=== PATIENT | male | born 1980 | race Caucasian/White ===

== ENCOUNTER 2022-02-19 08:33 | Outpatient (CLI) | payer OTHER ==
[2022-02-19 09:20] VITALS: BP 124/76
--- NOTE | 2022-02-19 09:20 | SLEEP CARE CONSULTATION ---
Information from patient questionnaire entered by Gerardo Griffin MA. I have reviewed and concur with the information entered by Gerardo Griffin MA. This document represents the service I personally performed and the decisions made by , Emilia Horan ARNP. History of Present Illness Service Date and Time: 02/19/2022 0833 Reason for Visit: New patient (ONSET DATE 09/21/2018, ) Chief Complaint: reports: Snoring, Observed pauses in breathing, Fatigue Date of Onset: several years Usual bedtime: varies due to rotating schedule; 11 PM to midnight Time it takes to fall asleep: either less than 5 minutes or an hour Snores at night: Yes Observed to quit breathing while asleep: Yes Sleeps alone due to snoring: Yes Number of times waking at night: 1-2 times Reasons for waking at night: reports: Snoring, Bathroom, Other (unknown reasons). denies: Choking, Gasping for air Toss, Turn, or Twitch while sleeping: No (not sure) Recalls having dreams: No Usually gets out of bed at: 6-7 AM Feels refreshed in the morning: Yes (depends - usually if able to get at least 6 hours) Morning headache: No Sleepy or fatigued during the day: Yes Ever fallen asleep while driving: Yes (drowsy driving, dozing at redlight after overnight shift) Takes day naps: Yes (only when working nights) Dreams during day naps: No Prior sleep studies: No Additional HPI information: I had the pleasure of seeing JENNIFER MATTSON today regarding the possibility of him having a sleep disorder. His current complaints are fatigue, snoring and observed pauses in breathing. He states he normally feels rested if he is able to sleep six hours. He had been on a rotating shift schedule at work but as of 2 weeks ago it has changed to a regular day shift. - Parasomnia Symptoms Ever been unable to move upon waking from sleep: No Walks in sleep: No Talks in sleep: Yes Ever acted out dreams in sleep: No Ever felt weak in the knees when startled or emotional: No Bothered by creepy, crawly, restless sensations in legs: No Problems with memory or concentration: Yes (more memory issues, short term) Subjective Initial [place] Sleepiness Scale score: 12 (02/2022) Past Medical History Past Medical History: reports: Dysphagia, GERD Social History The patient's occupation is a [employer]. Patient is and lives in . Have you smoked in the past 12 months: No Alcohol use: Yes Alcohol amount and frequency: 1-2 per week Caffeine use: Yes Caffeine amount and frequency: 2-3 daily Family History Family history of sleep disordered breathing: Yes Family Hx Sleep Apnea: Grandparent: Snoring Allergies and Home Medications Drug allergies reviewed: Yes (NKDA) Home medication list reviewed: Yes Allergy and home medication list: Medications: Terbinafine, temp for 84 days Omeprazole Famotidine Review of Systems Weight gain over past 5 years: 10-15 lbs Cardiovascular: denies: high blood pressure Gastrointestinal: reports: heartburn, difficulty swallowing Urinary: reports: other (wake up to pee every night) Ear/Nose/Throat: reports: wisdom teeth removed. denies: tonsillectomy Immunologic: reports: allergies to food or environment (seasonal) Physical Exam Vital signs obtained and entered by: Ankit Arellano MA Blood Pressure: 124/76 Cuff size: regular Heart Rate: 79 O2 Saturation: 97 Height: 5 ft 9 in Weight: 230 lb Body Mass Index: 34.0 BMI Classification: Obese Neck circumference: 17.75 (inches) Mouth and throat: narrow oropharynx Soft palate: long Hard palate: arched Uvula: normal Uvula visualization: 25% Mallampati Class III Tongue: enlarged in size with teeth hoff on lateral edges Tonsils: small Neck: normal w/o lymphadenopathy or thyromegaly Heart: regular rate and rhythm Lungs: clear bilaterally Impression and Plan 1. Suspected Obstructive Sleep Apnea-Hypopnea Syndrome, as suggested by a history of loud and irregular snoring, observed cessation of breath while asleep, cognitive impairment, and excessive daytime sleepiness. Narrow oropharynx and obesity are common predisposing factors for obstructive sleep apnea-hypopnea syndrome. I recommend proceeding to polysomnography to confirm the diagnosis and to assess severity. If the patient has significant sleep disordered breathing, a manual CPAP titration study will also be performed to find the optimal treatment pressure. I informed the patient of what the sleep studies involve and after some discussion, obtained agreement to proceed. The pathophysiology of obstructive sleep apnea-hypopnea syndrome was discussed with the patient and health risks of cardiovascular and cerebrovascular disease if not treated. 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 Patient agreed to plan. * Schedule polysomnography * Avoid long distance driving or driving when feeling sleepy. * Avoid alcohol, sedative and muscle relaxant around bedtime. * Attempt to lose weight. * Review instructions provided by trained office staff on how to prepare for the sleep study. * Return for follow-up after sleep study completed. Counseling Topics: Weight loss health impact Visit Type: In Office Time Spent with Patient (minutes): 32 Provider Statement: I spent 100% of the Face to Face Visit with the patient with greater than 50% spent counseling the patient and coordination of care.
== END 2022-02-19 08:34 | disposition home or self-care (01) ==
LOC: SC 08:33
PROVIDERS: ATTEND Nurse Practitioner Family
DX: R06.83 Snoring (principal); R06.81 Apnea, not elsewhere classified; G47.10 Hypersomnia, unspecified; R53.83 Other fatigue; Z68.34 Body mass index [BMI] 34.0-34.9, adult; E66.9 Obesity, unspecified
CPT/HCPCS: 99203; 99212

== ENCOUNTER 2022-03-03 20:35 | Outpatient (CLI) | payer OTHER | END 2022-03-03 20:36 | disposition home or self-care (01) | LOC: SC 20:35 | PROVIDERS: ATTEND Nurse Practitioner Family | DX: G47.33 Obstructive sleep apnea (adult) (pediatric) (principal) | CPT/HCPCS: 95810 ==

== ENCOUNTER 2022-03-25 15:11 | Outpatient (CLI) | payer OTHER ==
[2022-03-25 15:45] VITALS: BP 120/72
--- NOTE | 2022-03-25 15:45 | SLEEP CARE CONSULTATION ---
Information from patient questionnaire entered by Gerardo Griffin MA. I have reviewed and concur with the information entered by Gerardo Griffin MA. This document represents the service I personally performed and the decisions made by , Emilia Horan ARNP. History of Present Illness Service Date and Time: 03/25/2022 1511 Initial [place] Sleepiness Scale score: 12 (02/2022) Current [place] Sleepiness Scale score: 8 (03/25/2022) Additional HPI information: JENNIFER MATTSON returns for follow up and results of the recently performed polysomnography. I explained the pathophysiology behind obstructive sleep apnea. We then spent quite a bit of time discussing different treatment options. For mild obstructive sleep apnea, surgery and oral appliance are alternatives to nasal CPAP therapy but in moderate or severe cases, nasal CPAP is the most effective and reliable treatment. Because apnea is primarily in supine position, then positional management therapy could be effective. Methods discussed such as positioning with pillows, using a T-shirt with tennis balls in the back, and shown commercial products that have a pillow format on back to prevent supine sleep. I reviewed the impact of weight changes on sleep apnea and strongly recommended losing weight. After some discussion, the patient opted to go with the nasal CPAP therapy. Nasal autoCPAP set at 4-15 cmH20 will be ordered with rationale explained. A manual titration study will be ordered if unable to find optimal pressure with office adjustments. I explained how CPAP machine works and what to expect when using the machine. Using CPAP every night in order to get used to it was emphasized. Patient advised to put CPAP mask on before getting into bed so as not to fall asleep without CPAP. To assist acclimation to CPAP use, it could also be used for a short time during day while reading or watching TV. The patient was instructed to call the CPAP supplier to discuss any mechanical problem that may occur. If the mask given is uncomfortable or is difficult to keep on through the night even with adjustment, contact the CPAP supplier as many will replace with another mask style if notified before 30 days. If snoring or perceives is not getting enough air or too much air from the machine, notify this office. Patient counseled not drink alcohol less than 4 hours before bedtime as it can increase snoring and apnea. Patient was cautioned about risks of drowsy driving until sleepiness symptoms resolve. Sleep Study - Results Type of Sleep Study: Polysomnography (F/U POLY, 03/03/2022 [facility], POS,) Prior sleep studies: No Polysomnography/Home Sleep Study results: IMPRESSION: The quality of the study is good. The patient had normal sleep efficiency. The sleep architecture was abnormal for sleep fragmentation and reduced amount of time spent in REM and slow wave sleep (N3). Respiratory monitoring showed moderate obstructive sleep apnea-hypopnea (AHI = 21.1) associated with frequent arousals, oxyhemoglobin desaturation and moderate hypoxia (alvarez oxygen saturation of 78%). Baseline oxygen saturation was normal. The respiratory events occurred almost exclusively during supine sleep (supine AHI = 60.0; non-supine = 1.71). Snore was loud in intensity. There was no significant periodic leg movement of sleep. Cardiac rhythm was normal sinus rhythm without significant arrhythmia. No abnormal behavior (parasomnia) observed during the night. Allergies and Home Medications Home medication list reviewed: Yes (no changes) Review of Systems Review of systems same as previous: Yes (changes) Physical Exam Vital signs obtained and entered by: YARELY TOLEDO Blood Pressure: 120/72 (PULSE 73, RESP 18, RIGHT, ) Heart Rate: 77 O2 Saturation: 98 (PAPER MASK) Height: 5 ft 9 in Weight: 225 lb Body Mass Index: 33.2 BMI Classification: Obese Impression and Plan 1. Obstructive Sleep Apnea-Hypopnea Syndrome, moderate, with lowest oxygen saturation of 78%. Obviously this is the cause of the patients symptoms of unrefreshed sleep, and excessive daytime sleepiness. Positive pressure therapy could benefit gastric reflux. As mentioned above, the patient will be started on nasal autoCPAP therapy with pressure set at 4-15 cmH2O. Compliance guidelines also reviewed. A copy of compliance guidelines will be given for reference at check out. Because the apnea is more severe supine, I instructed to avoid sleeping supine using pillow positioning until able to start CPAP use. 2. Hypoxemia, moderate, a alvarez oxygen saturation of 78% and about 12.1 minutes spent under 89%. His baseline oxygen saturation was normal with an average oxygen saturation of 95%. * Nasal auto CPAP therapy, pressure at 4-15 cm H2O. * Attempt to lose weight. * Avoid alcohol consumption near bedtime. * Avoid supine sleep until using CPAP. * The patient is again cautioned about driving until sleepiness completely resolves. * Return one month after CPAP obtained. I will assess response to therapy and compliance at that time. Counseling Topics: Weight loss health impact Visit Type: In Office Time Spent with Patient (minutes): 21 Provider Statement: I spent 100% of the Face to Face Visit with the patient with greater than 50% spent counseling the patient and coordination of care.
== END 2022-03-25 15:12 | disposition home or self-care (01) ==
LOC: SC 15:11
PROVIDERS: ATTEND Nurse Practitioner Family
DX: G47.33 Obstructive sleep apnea (adult) (pediatric) (principal); R09.02 Hypoxemia; E66.9 Obesity, unspecified; Z68.33 Body mass index [BMI] 33.0-33.9, adult
CPT/HCPCS: 99212; 99213

== ENCOUNTER 2022-06-18 11:28 | Outpatient (CLI) | payer OTHER ==
[2022-06-18 12:14] VITALS: BP 144/74
--- NOTE | 2022-06-18 12:14 | SLEEP CARE CONSULTATION ---
Information from patient questionnaire entered by Christa Arellano. I have reviewed and concur with the information entered by Christa Arellano. This document represents the service I personally performed and the decisions made by , Emilia Horan ARNP. History of Present Illness Service Date and Time: 06/18/2022 1128 Previous diagnosis: Moderate, Obstructive Sleep Apnea-Hypopnea Syndrome AHI: 21.1 (in 2021) Reason for follow up: first compliance (SET UP 05/14/22, RESMED ) Equipment type: CPAP (ResMed) Equipment obtained from: Other ([facility]; getting supplies) Mask style: Nasal (over the nose) Backup mask available: No (will keep old mask when replaced) Last cushion change: last week Prior sleep studies: No Type of Sleep Study: Polysomnography (F/U POLY, 03/03/2022 [facility], POS,) HPI additional information: JENNIFER MATTSON was diagnosed to have moderate, AHI 21.1, obstructive sleep apnea- hypopnea syndrome and returned today for CPAP therapy first compliance follow- up. Sleep Study - Results Type of Sleep Study: Polysomnography (F/U POLY, 03/03/2022 [facility], POS,) Prior sleep studies: No CPAP Compliance Data - Data Reviewed with Patient Average duration of nightly device use: 5 HOURS, 1 MINUTE Compliance rate %: 68 (05/18/22 TO 06/17/22; days used) Current pressure setting (cmH2O): 4-15 (median 8.3, avg 10.1, max 10.9) Average residual AHI: 4.1 Average large leak: 6.2 L/mask Subjective Missed days of use due to: reports: travel Patient concerns: reports: condensation in mask/hose. denies: aerophagia, mask discomfort, air blowing in eyes, mask leak noise, nasal congestion, dry mouth, nose, throat, epistaxis Observed to snore while using device: No Current pressure setting perceived as: comfortable On therapy, patient: reports: sleeping better, awakening more refreshed, being more awake and alert during the day, more rested overall. denies: drowsiness while driving Initial [place] Sleepiness Scale score: 12 (02/2022) Current [place] Sleepiness Scale score: 3 (06/18/22) Allergies and Home Medications Drug allergies reviewed: Yes (NKDA) Home medication list reviewed: Yes (no changes) Review of Systems Review of systems same as previous: Yes (no changes) Physical Exam Vital signs obtained and entered by: EVITA Couch Blood Pressure: 144/74 (LEFT ARM ) Cuff size: regular Heart Rate: 66 O2 Saturation: 96 Height: 5 ft 9 in Weight: 231 lb Body Mass Index: 34.1 BMI Classification: Obese Impression and Plan 1. Obstructive Sleep Apnea-Hypopnea Syndrome, moderate, with good treatment compliance and good apnea control. On CPAP therapy, the patient has better sleep quality and is more rested overall. Patient has significant improvement of his sleep apnea and is getting comfortable with CPAP therapy. The patients pressure will be changed to autoCPAP 9-11 cmH20 to reflect pressures being used. His ramp is off. I will turn this on for patient comfort with a starting ramp pressure of 4 and 15 minutes of ramp time. Patient advised to contact me if pressure change is uncomfortable so that it can be adjusted. Goals for apnea control discussed. Patient's apnea severity and rationale for treatment to reduce apnea, improve sleep quality and reduce cardiovascular and cerebrovascular events was reviewed. I also reviewed the benefit of consistent device use of CPAP for gastric reflux. * Change auto CPAP pressure to 9-11 cmH2O * Notify me if snoring with mask or feeling that the pressure is too much or too little * Attempt to lose weight * Call this office if any problems using CPAP * Return for follow up in 1-2 months, or sooner if concerns arise Counseling Topics: Spare mask, Weight loss health impact Visit Type: In Office Time Spent with Patient (minutes): 22 Provider Statement: I spent 100% of the Face to Face Visit with the patient with greater than 50% spent counseling the patient and coordination of care.
== END 2022-06-18 11:29 | disposition home or self-care (01) ==
LOC: SC 11:28
PROVIDERS: ATTEND Nurse Practitioner Family
DX: G47.33 Obstructive sleep apnea (adult) (pediatric) (principal); E66.9 Obesity, unspecified; Z68.34 Body mass index [BMI] 34.0-34.9, adult
CPT/HCPCS: 99212; 99213

== ENCOUNTER 2023-07-09 11:24 | Day surgery (SDC) | payer OTHER ==
[~2023-07-09 11:24] MED LIST: ceFAZolin 2 GM VIAL ONE; metroNIDAZOLE 500 MG/100 ML 500 MG/100 ML BAG ONE
[2023-07-09] MEDS ORDERED: LACTATED RINGERS 1,000 ML IV ONE (11:28)
[2023-07-09] MEDS ORDERED: ROCURONIUM 50 MG/5 ML VIAL ONE (12:04)
[2023-07-09] MEDS ORDERED: PROPOFOL 500 MG/50 ML 500 MG/50 ML VIAL ONE (12:04)
[2023-07-09] MEDS ORDERED: BUPIVACAINE 0.25% PF 30 ML VIAL ONE ×2 (12:25→13:10)
--- NOTE | 2023-07-09 12:25 | HISTORY & PHYSICAL EXAMINATION ---
Chief Complaint - Chief Complaint Chief Complaint: here for pilonidal cyst surgery History of Present Illness - History Obtained From Records Reviewed: yes History obtained from: pt Exam Limitations: none - History of Present Illness HPI Comment/Other: pilonidal cyst problem for many months. waxing and waning inflammation and pain History - Past Medical History Cardiovascular: reports: None Respiratory: reports: Sleep apnea, CPAP use Endocrine/Autoimmune: reports: None GI: reports: GERD, Ulcers : reports: None HEENT: reports: Chronic hearing loss, Other Psych: reports: None Musculoskeletal: reports: Chronic back pain Derm: reports: None MRSA Hx?: No - Past Surgical History General: reports: EGD Meds/Allgy - Home Medications Home Medications: Ambulatory Orders Medication Instructions Recorded Confirmed Famotidine [Pepcid] 20 mg PO DAILY PRN 07/06/23 07/08/23 - Allergies Allergies/Adverse Reactions: Allergies Allergy/AdvReac Type Severity Reaction Status Date / Time No Known Drug Allergies Allergy Verified 07/09/23 11:45 Review of Systems - Other Findings Other Findings: 10 pt ros as above otherwise unremarkable Exam - Vital Signs Vital Signs: Vital Signs x48h Temp Pulse Resp BP Pulse Ox 07/09/23 11:37 36.2 C L 65 10 L 128/88 H 97 - Physical Exam General Appearance: positive: No acute distress, Alert Eyes Bilateral: positive: PERRL, EOMI ENT: positive: No signs of dehydration Neck: positive: No JVD, Trachea midline Respiratory: positive: No respiratory distress, Breath sounds nml Cardiovascular: positive: Regular rate & rhythm Abdomen: positive: No distention Skin: positive: Other (pilonidal cyst present) Neurologic/Psychiatric: positive: Oriented x3 Conclusion/Plan - Problem List (1) Pilonidal cyst Conclusion/Plan: plan excision. parq held and consent obtained
[2023-07-09] MEDS ORDERED: fentaNYL 100 MCG/2 ML VIAL IVP PRN (12:28)
[2023-07-09] MEDS ORDERED: ePHEDrine 50 MG/ML VIAL IVP PRN (12:28)
[2023-07-09] MEDS ORDERED: NALOXONE 0.4 MG/ML VIAL IVP PRN (12:28)
[2023-07-09] MEDS ORDERED: ATROPINE ABBOJECT 1 MG/10 ML SYRINGE IVP PRN (12:28)
[2023-07-09] MEDS ORDERED: ONDANSETRON 4 MG/2 ML VIAL IVP PRN (12:28)
[2023-07-09] MEDS ORDERED: HYDROmorphone 0.5 MG/0.5 ML SYRINGE IVP PRN (12:28)
--- NOTE | 2023-07-09 12:28 | ANESTHESIA ---
Pre-Anesthesia VS, & Labs - Diagnosis pilonidal cyst - Procedure pilonidal cystectomy Vital Signs: Temp Pulse Resp BP Pulse Ox O2 Flow Rate 36.2 C L 65 10 L 128/88 H 97 07/09/23 11:37 07/09/23 11:37 07/09/23 11:37 07/09/23 11:37 07/09/23 11:37 Height: 5 ft 9 in Weight (kg): 104.7 kg Body Mass Index: 34.0 BMI Classification: Obese - NPO >8 hours - Lab Results Lab results reviewed: Yes Home Medications and Allergies Home Medications: Ambulatory Orders Famotidine [Pepcid] 20 mg PO DAILY PRN 07/06/23 Famotidine [Pepcid] 20 mg PO DAILY PRN 07/06/23 Allergies/Adverse Reactions: Allergies Allergy/AdvReac Type Severity Reaction Status Date / Time No Known Drug Allergies Allergy Verified 07/09/23 11:45 Anes History & Medical History - Anesthetic History Anesthesia Complications: reports: No previous complications Family history of Anesthesia Complications: Denies Family history of Malignant Hyperthermia: Denies - Medical History Cardiovascular: reports: None Pulmonary: reports: Sleep apnea, CPAP use Gastrointestinal: reports: GERD (w/c), Ulcers Urinary: reports: None Neuro: reports: None Musculoskeletal: reports: Chronic back pain Endocrine/Autoimmune: reports: None Skin: reports: None Smoking Status: Never smoker Psychosocial: reports: No issues indicated - Surgical History General: reports: EGD Exam General: Alert, Oriented x3, Cooperative Dental: WNL Mouth Openin Fingerbreadth Neck Mobility: Normal Mallampati classification: II Thyromental Distance: 4-6 cm Respiratory: Lungs clear Cardiovascular: Regular rate Plan Anesthesia Type: General Consent for Procedure(s) Verified and Reviewed: Yes Code Status: Attempt Resuscitation ASA classification: 2-Mild systemic disease Is this case an emergency?: No
[2023-07-09] MEDS ORDERED: fentaNYL 100 MCG/2 ML VIAL ONE (12:30)
[2023-07-09] MEDS ORDERED: GLYCOPYRROLATE 1 MG/5 ML VIAL ONE (12:58)
[2023-07-09] MEDS ORDERED: LACTATED RINGERS 1,000 ML IV SCH (13:00)
[2023-07-09] MEDS ORDERED: BUPIVACAINE 0.25% PF 30 ML VIAL SUBQ ONE (13:06)
[2023-07-09] MEDS ORDERED: DEXAMETHASONE 4 MG/ML VIAL ONE (13:09)
[2023-07-09] MEDS ORDERED: ONDANSETRON 4 MG/2 ML VIAL ONE (13:09)
[2023-07-09] MEDS ORDERED: SUGAMMADEX 200 MG/2 ML VIAL IVP ONE (13:13)
[2023-07-09] MEDS ORDERED: LIDOCAINE-PF 2% 10 ML AMP SUBQ ONE (13:13)
[2023-07-09] MEDS ORDERED: LACTATED RINGERS 700 ML IV ONE ×2 (13:49)
[2023-07-09] MEDS ORDERED: HYDROcod/ACETAM 5/325 MG TABLET PO PRN (13:49)
--- NOTE | 2023-07-09 13:54 | OPERATIVE REPORT ---
Operative Report - General Procedure Date: 07/09/23 Planned Procedure: pilonidal cyst excision Pre-Op Diagnosis: extensive pilonidal cyst disease Procedure Performed: pilonidal cyst excision/ intermediate Post Op Diagnosis: same - Procedure Note Primary Surgeon: nayeli costa Anesthesia Technique: General ET tube, Local Pathology: benign tissue. not sent Estimated Blood Loss (mL): 20 Drain/Tube Type: Other (none) Indications: chronic pain and inflammation Findings: pilonidal cyst disease with 3 sinus tracts and a inflammatory nodule over a 5 cm area Complications: none - Other Other Information/Narrative: The patient was properly identified and brought to the operating room. General endotracheal anesthesia was induced and stretcher. The patient was carefully repositioned prone. Sequential compression devices were placed. Patient was prepped and draped in a sterile fashion and given preoperative antibiotics. Local anesthetic was given to the area. With an 11 blade small incisions were made around the sinus tracts. A left lateral incision was then made. Skin flap was then raised. The pilonidal cyst and chronic inflammatory tissue was then removed back to normal healthy tissue. Hemostasis was assured. Deep subcutaneous tissue was closed with interrupted 2-0 Vicryl suture. Buried interrupted subdermal 3-0 Vicryl sutures were then placed. Vertical mattress interrupted 3-0 nylon sutures were then placed. Dressing was applied. Patient was repositioned supine on the stretcher. Patient was then awakened and brought to recovery in good condition.
[2023-07-09] MEDS ORDERED: BUPIVACAINE 0.5%-EPI 1:200000 PF 30 ML VIAL ONE (16:59)
[2023-07-09 17:46] VITALS: BP 122/70; O2SAT 96
--- NOTE | 2023-07-09 19:14 | ANESTHESIA POST OP EVALUATION ---
Anesthesia Post Eval - Post Anesthesia Eval Vitals: Last Vital Signs Temp 36.7 C 07/09/23 16:08 Pulse 64 07/09/23 17:20 Resp 18 07/09/23 17:20 BP 122/70 07/09/23 17:20 Pulse Ox 96 07/09/23 17:20 O2 Flow Rate CV Function Including HR & BP: Stable Pain Control: Satisfactory Nausea & Vomiting: Negative Mental Status: Baseline Respiratory Status: Airway Patent Hydration Status: Satisfactory Anesthesia Complications: None
== END 2023-07-09 11:25 | disposition home or self-care (01) ==
LOC: SDS 11:24
PROVIDERS: ATTEND Surgery
DX: L05.91 Pilonidal cyst without abscess (principal); E66.9 Obesity, unspecified; Z68.34 Body mass index [BMI] 34.0-34.9, adult; G47.30 Sleep apnea, unspecified
CPT/HCPCS: 11771; J7120